=== PATIENT | female | born 2000 | race African-American/Black ===

== ENCOUNTER 2022-11-20 12:16 | Emergency (ER) | payer OTHER ==
[~2022-11-20] VITALS: Ht 160 cm; Wt 100.0 kg
[2022-11-20 13:30] VITALS: BP 125/80
[2022-11-20] MEDS ORDERED: KETOROLAC TROMETH 60MG/2ML VIAL IM ONE (14:15)
[2022-11-20] MEDS ORDERED: HYDROcodone-ACET 5/325MG TAB PO ONE (14:15)
[2022-11-20] MEDS ORDERED: ZOFR4T PO (17:10)
[2022-11-20] MEDS ORDERED: CEPH250C PO (17:10)
[2022-11-20] MEDS ORDERED: HYDR-4902 PO (17:10)
[2022-11-20] MEDS ORDERED: MAX35OO TOP (17:10)
[2022-11-20] MEDS ORDERED: IBUP-1455 PO (17:10)
[2022-11-20] MEDS ORDERED: NEOMYCIN-BACITRACIN-POLYM UNITDOSE PKG TOP OINT TOP ONE (17:15)
== END 2022-11-20 17:57 | disposition home or self-care (01) ==
LOC: ER 12:16 → EDBD 12:16 → ER 17:56
DX: S60.221A Contusion of right hand, initial encounter (principal); S80.12XA Contusion of left lower leg, initial encounter; V89.2XXA Person injured in unspecified motor-vehicle accident, traffic, initial encounter; Y93.89 Activity, other specified; Y92.89 Other specified places as the place of occurrence of the external cause; Y99.8 Other external cause status
CPT/HCPCS: 73130; 73590; 96372; 99284; J1885